=== PATIENT | male | born 1980 | race Hispanic/Latino ===

== ENCOUNTER 2020-01-24 12:45 | Observation (INO) | payer BC, SELFPAY ==
[2020-01-24] MEDS ORDERED: Aspirin Chewable 81 MG TAB ONE (13:14)
--- NOTE | 2020-01-24 13:30 | RAD ---
XR Chest 1 View Portable HISTORY: Chest pain COMPARISON: None FINDINGS: The heart size is normal. The lungs are well expanded without focal areas of consolidation, pneumothorax or pleural effusions. IMPRESSION: No radiographic evidence of acute cardiopulmonary process.
[2020-01-24 13:35] LABS: #Basophils 0.1 thou/uL (0.0-0.2); #Eosinphils 0.2 thou/uL (0.0-0.7); #Lymphocytes 2.9 thou/uL (1.20-3.40); #Neutrophils 5.5 thou/uL (1.40-6.50); %Basophils 0.6 % (0.0-1.0); %Eosinophils 2.2 % (0.0-10.0); %Lymphocytes 30.2 % (21.0-51.0); %Monocytes 9.9 % (0.0-10.0); %Neutrophils 57.1 % (42.0-75.0); Hemoglobin 15.8 g/dL (14.0-18.0); Mean Corpuscular HGB CONC 33.8 g/dL (32.0-36.0); Mean Corpuscular Hemoglobin 31.3 pg (27.0-31.0); Mean Corpuscular Volume 92.6 fL (78.0-98.0); Platelet Count 230 thou/uL (130-400); RBC Distribution Width 12.4 % (11.5-14.5); Red Blood Cell (RBC) Count 5.06 mill/uL (4.70-6.10); White Blood Cell (WBC) Count 9.6 thou/uL (4.8-10.8)
[2020-01-24 13:58] LABS: ALT (SGPT) 46 U/L (8-55); AST (SGOT) 20 U/L (5-34); Albumin 4.2 g/dL (3.5-5.0); Alkaline Phosphatase 76 U/L (40-110); Anion Gap 13 mmol/L (10-20); BUN (Urea Nitrogen) 13 mg/dL (8.9-20.6); Bilirubin, Total 0.3 mg/dL (0.2-1.2); Calc. Creatinine Clearance 0 mL/min (70-130); Carbon Dioxide 23 mmol/L (22-29); Chloride 104 mmol/L (98-107); Globulin 3.2 g/dL (2.4-3.5); Glucose 338 mg/dL (70-105); Lipase 105 U/L (8-78); Potassium 4.2 mmol/L (3.5-5.1); Protein, Total 7.4 g/dL (6.0-8.3); Sodium 136 mmol/L (136-145)
[2020-01-24] MEDS ORDERED: Enoxaparin Sodium 100 MG/ML SYRINGE ONE (15:00)
[2020-01-24] MEDS ORDERED: Senokot S 8.6-50 MG TAB PO PRN (16:27)
[2020-01-24] MEDS ORDERED: Acetaminophen 650 MG Suppository PR PRN (16:27)
[2020-01-24] MEDS ORDERED: Guaifenesin DM 100-10/5 ML UDCUP PO PRN (16:27)
[2020-01-24] MEDS ORDERED: HumaLOG 300 UNITS/3 ML VIAL SC PRN ×2 (16:27)
[2020-01-24] MEDS ORDERED: Ondansetron PF 4 MG/2 ML Vial IVP PRN (16:27)
[2020-01-24] MEDS ORDERED: Dextrose 50% Abboject 50 ML SYRINGE SLOW IVP PRN (16:27)
[2020-01-24] MEDS ORDERED: Dextrose 5% in Water 1,000 ML IV PRN (16:27)
[2020-01-24] MEDS ORDERED: Ondansetron ODT 4 MG TAB PO PRN (16:27)
[2020-01-24] MEDS ORDERED: Acetaminophen 325 MG TAB PO PRN (16:27)
[2020-01-24] MEDS ORDERED: HYDROcodone/Acetaminophen 5/325 mg Tablet PO PRN ×2 (16:27)
--- NOTE | 2020-01-24 16:54 | PDOC.EVN ---
Event Note - Event Note Event Note: Curbsided Dr. Cabrera. She stated that with normal EKG, negative troponin to do a stress test. If positive will need card consult and catheterization.
[2020-01-24] MEDS ORDERED: Carvedilol 3.125 MG TAB PO SCH (17:00)
--- NOTE | 2020-01-24 17:15 | HP ---
PRIMARY CARE PHYSICIAN: William Jackson MD CHIEF COMPLAINT: Chest pressure and shortness of breath. HISTORY OF PRESENT ILLNESS: This is a 39-year-old male, who has a known history of diabetes, hypertension, hyperlipidemia, and who was diagnosed with coronary artery disease in [place] in July of this year. 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 He was doing work in the [place] area, developed severe chest pressure with tingling and numbness of bilateral elbows. He went into the hospital there and they observed him overnight and then did a cardiac cath and found a 95% LAD stenosis. He had a single stent placed and was started on aspirin and Effient which he has been on since then. He was told he needed to take them for at least a year. The patient came back down to [place] to try and get some rest and relaxation and to see if this would help him some. He states that he may have been having a little chest pressure intermittently, but not regularly until about Tuesday, started getting central chest pressure, moving some to the left side of the chest, but mostly to the back. Chest pressure would come and go, was worse sometimes when he was doing activity, but denies any when he was lying still, did worry him a lot, so whenever he would get it, he would not be able to sleep at night. This chest pressure was associated with some shortness of breath and then today started getting some tingling around his right elbow just like before his last stent and so he came into the emergency room. In the ER, patient had a negative EKG, negative cardiac marker set. He was given aspirin and 1 mg/kg Lovenox and is being admitted for observation for possible unstable angina. Currently, he did not have any chest pressure, though when he started moving around a little bit and talking to me, this started to come back slightly. REVIEW OF SYSTEMS: CONSTITUTIONAL: No fevers, no chills. Patient did have diaphoresis with the chest pressure sometimes, especially right before he came in the hospital this time. EYES: No double vision or blurred vision that is new. He does have some chronic blurring of his vision from diabetes, which sounds like it is not well controlled. ENT: No congestion, drainage or sore throat. CARDIOVASCULAR: See HPI. No palpitations or racing heart. PULMONARY: See HPI. He had a little bit of a cough earlier in the week. This went away with some [id number] medication. No wheezing or chest tightness currently. GASTROINTESTINAL: No abdominal pain. No nausea or vomiting. No diarrhea or constipation. GENITOURINARY: No dysuria or hematuria. MUSCULOSKELETAL: No muscle aches or joint pains besides some chronic back pain with left-sided sciatica. SKIN: No rashes or lesions noted. NEUROLOGIC: See HPI. He also gets some tingling of his hands sometimes, which he attributes to his diabetes. PAST MEDICAL HISTORY: 1. Coronary artery disease with previous LAD stent. 2. Hypertension. 3. Hyperlipidemia. 4. Diabetes mellitus type 2. 5. Some sort of kidney issue as a child that he has not had since he was a teenager. PAST SURGICAL HISTORY: 1. Cholecystectomy. 2. Right shoulder surgery. 3. Stent to the LAD. SOCIAL HISTORY: The patient smokes cigarettes, it is usually a pack per day, when he is working it at a little more intermittent, and he will skip days at a time when he is not working. Has had trouble quitting in the past. He does report a previous history of cocaine use. The last time was in 2015. No current illicit drugs. Drinks socially about twice a month. The patient is . He reports he is a full code. Should he be incapacitated, his would be his medical decision maker, her name is Caryn Olivera. FAMILY HISTORY: Heart disease in his dad in his 70s, and mother and father both with diabetes, and both grandmothers with cancer. ALLERGIES: NO KNOWN DRUG ALLERGIES. CURRENT MEDICATIONS: 1. Lisinopril 10 mg daily. 2. Aspirin 81 mg daily. 3. Effient 10 mg daily. 4. Carvedilol 3.125 mg did twice a day. 5. Crestor, uncertain dose daily. 6. Metformin, uncertain dose twice a day. 7. Glipizide once a day. PHYSICAL EXAMINATION: VITAL SIGNS: Blood pressure 113/80, pulse 86, respirations 14, temperature 98.0, O2 saturation 99% on room air. GENERAL: This is a well-developed, obese, male, in no acute distress. HEENT: Pupils equal, round, and reactive to light. Oropharynx clear without lesions, erythema, or exudate. NECK: Supple. No lymphadenopathy. No thyroid nodules or enlargement. No JVD. HEART: Regular rate and rhythm. No murmurs, rubs, or gallops. LUNGS: Clear to auscultation bilaterally. No wheezes, crackles, or rhonchi. ABDOMEN: Soft, obese, nontender to palpation. Normoactive bowel sounds. No hepatosplenomegaly or other masses. EXTREMITIES: No clubbing, cyanosis, or edema. SKIN: No rashes or other lesions noted. NEUROLOGIC: The patient moves all extremities equally. No current loss of sensation. No facial droop. PSYCHIATRIC: Alert and oriented x3. Normal mood and affect. LABORATORY DATA: CBC within normal limits. Coagulation profile with a negative D-dimer. Complete metabolic panel is notable only for glucose of 338 and a lipase of 105. The rest was normal. Brain natriuretic peptide was negative and troponin was negative x1. Chest x-ray, I did review the chest x-ray done in the emergency room along with the radiologist report. It shows no acute cardiopulmonary disease. Normal chest x-ray. EKG, I did review the EKG done in the emergency room. It does show sinus tachycardia at 105 beats per minute without any ST-segment changes or T-wave changes. No evidence of ischemia. ASSESSMENT: 1. Chest pain, concern for unstable angina. The patient has a history of a stented LAD lesion in the last 6 months, concern for possible in-stent restenosis. We will continue Lovenox started in the emergency room as well as aspirin and the patient's Effient, and we will consult Cardiology, Dr. Cabrera and see if the patient needs another catheterization or a stress test. 2. Diabetes mellitus type 2. We will hold patient's metformin for now. We will resume his sulfonylurea and put him on a diabetic diet and fingerstick blood sugars q.a.c. and at bedtime and a low insulin sliding scale for now. 3. Hypertension. Resume the patient's home medications. 4. Hyperlipidemia. Resume the patient's home statin. 5. Gastrointestinal prophylaxis. The patient on Pepcid twice a day. 6. Deep venous thrombosis prophylaxis. Patient is already on Lovenox. CODE STATUS: The patient is a full code. Should he be incapacitated, his would be his medical decision maker. Job ID: [id number] [facility]
[2020-01-24 17:55] LABS: Troponin I 0.014 ng/mL (< 0.028)
[2020-01-24 18:40] VITALS: BMI 32.5
[2020-01-24 20:03] LABS: Troponin I Less than 0.010 ng/mL (< 0.028)
[2020-01-24] MEDS: Famotidine 20 MG TAB PO SCH (20:30)
[2020-01-24] MEDS: Enoxaparin Sodium 100 MG/ML SYRINGE SC SCH (20:30)
[2020-01-24] MEDS ORDERED: Rosuvastatin 20 MG TAB PO SCH (21:00)
[2020-01-24 23:04] LABS: SARS-CoV-2 MS2 Positive; SARS-CoV-2 N Gene Negative; SARS-CoV-2 S Gene Negative; SARS-CoV-2 by NAA Not Detected (NotDetected); SARS-CoV-2 orf1ab Negative
[2020-01-25 04:08] LABS: #Basophils 0.1 thou/uL (0.0-0.2); #Eosinphils 0.3 thou/uL (0.0-0.7); #Lymphocytes 4.1 thou/uL (1.20-3.40); #Neutrophils 5.6 thou/uL (1.40-6.50); %Basophils 1.2 % (0.0-1.0); %Eosinophils 2.4 % (0.0-10.0); %Lymphocytes 36.7 % (21.0-51.0); %Monocytes 9.2 % (0.0-10.0); %Neutrophils 50.5 % (42.0-75.0); Hemoglobin 14.6 g/dL (14.0-18.0); Mean Corpuscular HGB CONC 34.6 g/dL (32.0-36.0); Mean Corpuscular Hemoglobin 32.2 pg (27.0-31.0); Mean Corpuscular Volume 93.3 fL (78.0-98.0); Platelet Count 217 thou/uL (130-400); RBC Distribution Width 12.4 % (11.5-14.5); Red Blood Cell (RBC) Count 4.54 mill/uL (4.70-6.10)
[2020-01-25 04:29] LABS: Anion Gap 14 mmol/L (10-20); BUN (Urea Nitrogen) 13 mg/dL (8.9-20.6); Calc. Creatinine Clearance 180 mL/min (70-130); Calcium 8.9 mg/dL (7.8-10.44); Carbon Dioxide 21 mmol/L (22-29); Chloride 103 mmol/L (98-107); Glucose 270 mg/dL (70-105); Potassium 4.1 mmol/L (3.5-5.1); Sodium 134 mmol/L (136-145)
--- NOTE | 2020-01-25 07:41 | PDOC.HOSPP ---
- Subjective Encounter Date: 01/25/20 Encounter Time: 10:00 Subjective: Patient with minimal chest pressure on and off. Some tingling around his elbow on right. No other complaints. Going down for stress test right now. - Objective Vital Signs & Weight: Vital Signs (12 hours) Temp Pulse Resp BP Pulse Ox 01/25/20 07:24 97.8 F 85 16 119/85 95 01/25/20 03:46 97.8 F 92 18 116/87 98 01/25/20 00:00 89 Weight Weight 220 lb 9.6 oz I&O: 01/24/20 01/25/20 01/26/20 06:59 06:59 06:59 Intake Total 720 Balance 720 Result Diagrams: 01/25/20 03:35 01/25/20 03:35 Additional Labs: Accuchecks 01/25/20 01/24/20 06:22 20:10 POC Glucose 228 H 232 H Hospitalist ROS - Review of Systems Constitutional: denies: fever, chills Respiratory: denies: cough, shortness of breath Cardiovascular: denies: chest pain, palpitations Gastrointestinal: denies: nausea, vomiting, abdominal pain - Medication Medications: Active Medications Generic Name Dose Route Start Last Admin Trade Name Freq PRN Reason Stop Dose Admin Carvedilol 3.125 mg 01/24/20 17:00 01/24/20 20:30 Carvedilol 3.125 Mg Tab PO 3.125 mg BID-WM ANGIE Administration Enoxaparin Sodium 100 mg 01/24/20 21:00 01/24/20 20:30 Enoxaparin Sodium 100 Mg/Ml Syringe SC 100 mg 0900,2100 ANGIE Administration Famotidine 20 mg 01/24/20 21:00 01/24/20 20:30 Famotidine 20 Mg Tab PO 20 mg BID ANGIE Administration Rosuvastatin Calcium 20 mg 01/24/20 21:00 01/24/20 20:30 Rosuvastatin 20 Mg Tab PO 20 mg HS ANGIE Administration - Exam General Appearance: NAD, awake alert ENT: moist mucosa Heart: RRR, no murmur, no gallops, no rubs Respiratory: CTAB, no wheezes, no rales, no ronchi Gastrointestinal: soft, non-tender, non-distended, normal bowel sounds Psychiatric: normal affect, normal behavior, A&O x 3 Hosp A/P (1) Chest pain, rule out acute myocardial infarction Code(s): R07.9 - CHEST PAIN, UNSPECIFIED Status: Acute (2) CAD (coronary artery disease) Code(s): I25.10 - ATHSCL HEART DISEASE OF [place] CORONARY ARTERY W/O ANG PCTRS Status: Chronic Qualifiers: Coronary Disease-Associated Artery/Lesion type: [place] artery (3) HTN (hypertension) Code(s): I10 - ESSENTIAL (PRIMARY) HYPERTENSION Status: Chronic (4) HLD (hyperlipidemia) Code(s): E78.5 - HYPERLIPIDEMIA, UNSPECIFIED Status: Chronic (5) Diabetes mellitus type 2 in obese Code(s): E11.69 - TYPE 2 DIABETES MELLITUS WITH OTHER SPECIFIED COMPLICATION; E66.9 - OBESITY, UNSPECIFIED Status: Chronic - Plan stress test this morning, if negative can d/c with outpatient followup.
[2020-01-25] MEDS ORDERED: Carvedilol 6.25 MG TAB PO SCH (08:00)
[2020-01-25] MEDS ORDERED: Prasugrel 10 MG TAB PO SCH (09:00)
[2020-01-25] MEDS ORDERED: Aspirin 81 mg Enteric Coated Tablet PO SCH (09:00)
[2020-01-25] MEDS ORDERED: glipiZIDE 10 MG TAB PO SCH (09:00)
[2020-01-25] MEDS ORDERED: Lisinopril 5 MG TAB PO SCH (09:00)
[2020-01-25] MEDS ORDERED: Lisinopril 10 MG TAB PO SCH (09:00)
--- NOTE | 2020-01-25 13:50 | NM ---
Radionucleotide stress and rest myocardial perfusion scan with CT attenuation correction and SPECT im aging Left ventricular wall motion evaluation and ejection fraction HISTORY: Chest pain. Hypertension. FINDINGS: Adenosine protocol. There is homogeneous uptake of radiotracer throughout the left ventricu lar myocardium. No focal perfusion defect or reversibility. QGS analysis of gated SPECT images shows global hypokinesis. Ejection fraction calculated at 42%. IMPRESSION : No evidence of ischemia. Depressed LVEF 42%.
[2020-01-25] MEDS ORDERED: ADENOSINE 60 MG/20 ML VIAL ONE (14:09)
[2020-01-25] MEDS: Famotidine 20 MG TAB PO SCH (14:11)
[2020-01-25] MEDS: Enoxaparin Sodium 100 MG/ML SYRINGE SC SCH (14:12)
[2020-01-25 14:35] VITALS: BP 121/98; TEMP 97.9
[2020-01-25] MEDS ORDERED: Rosuvastatin 20 MG TAB PO SCH (21:00)
[2020-01-25] MEDS ORDERED: FLU VACC QS2020-21(6MOS UP)/PF 60 MCG/0.5 ML SYRINGE IM ONE (21:00)
--- NOTE | 2020-01-25 23:53 | DIS ---
DATE OF ADMISSION: 01/24/2020 DATE OF DISCHARGE: 01/25/2020 PRIMARY CARE PHYSICIAN: William Jackson MD. REASON FOR ADMISSION: Chest pressure. DIAGNOSES AT DISCHARGE: 1. Chest pressure, resolved. 2. Coronary artery disease. 3. Hypertension. 4. Hyperlipidemia. 5. Diabetes mellitus type 2. PROCEDURE: Nuclear medicine stress testing showing normal stress test. No evidence for significant coronary blockage. CONSULTATIONS: None. SUMMARY OF HOSPITAL COURSE: This is a 39-year-old male with a known history of diabetes, hypertension, hyperlipidemia, and who was diagnosed with severe LAD stenosis in July of this year. He had a stent placed. He has been on Effient and aspirin since then, which he has been taking religiously. He developed some chest pressure recently and then over the weekend started to get more frequent chest pressure episodes, also associated with some tingling around his right elbow, which he remembers having when he had his previous stent placed. He eventually came into the emergency room. He had negative EKG, negative cardiac markers, was given aspirin and Lovenox and admitted for observation. The patient had negative cardiac markers overnight. He had noted no abnormalities on his telemetry monitoring. He had a nuclear medicine stress test that was negative for evidence for significant coronary artery disease. The patient was doing well the day of discharge and is being discharged home to follow up with Cardiology as an outpatient. DISCHARGE MANAGEMENT: Discharged home. ACTIVITY: As tolerated. DIET: Diabetic diet. FOLLOWUP: Follow up with Dr. Jackson in [address] Cabrera in 3 to 4 weeks. He is to call our office for an appointment. DISCHARGE MEDICATIONS: 1. Aspirin 81 mg daily. 2. Carvedilol 6.25 mg twice daily. 3. Glipizide 10 mg twice daily. 4. Lisinopril 5 mg daily. 5. Effient 10 mg daily. 6. Crestor 40 mg at night. 7. Metformin 1000 mg twice daily. Job ID: [id number]
--- NOTE | 2020-02-02 17:53 | EKG ---
Test Reason : Blood Pressure : / mmHG Vent. Rate : 101 BPM Atrial Rate : 101 BPM P-R Int : 148 ms QRS Dur : 082 ms QT Int : 334 ms P-R-T Axes : 051 037 042 degrees QTc Int : 433 ms Sinus tachycardia Otherwise normal ECG Confirmed by ROMULO VAUGHAN, ROSENDA ([id number]), graphic editor GASPER MILLS ([id number]) on 02/02/2020 5:52:42 PM Referred By: Confirmed By:ROSENDA SEBASTIAN MD
--- NOTE | 2020-02-06 09:31 | STRESS ---
Acquisition Time: 2020-01-25 12:00:37 Total Exercise Time: 00:04:00 Test Indications: CHEST PAIN Medications: Protocol: ADENOSINE Max HR: 117 BPM 65% of Pred: 180 BPM Max BP: 136/098 mmHG Max Work Load: 1.0 METS RESTING ECG: NORMAL SINUS RHYTHM AT 87 BPM SYMPTOMS: NONE NORMAL BLOOD PRESSURE RESPONSE ECTOPY: NONE ECG RESPONSE: NO SIGNIFICANT CHANGES INTERPRETATION: NEGATIVE ECG/AWAIT NUCLEAR IMAGES FOR DEFINITIVE DIAGNOSIS Confirmed by DESHAWN MATHUR MD ([id number]) on 02/06/2020 9:31:37 AM Referred By: MD Antonio VERDUGO Confirmed By:DESHAWN MATHUR MD
== END 2020-01-25 15:41 | disposition home or self-care (01) ==
LOC: ERS 12:45 → ERHOLD 14:58 → 2NO 18:21
PROVIDERS: ADMIT Student in an Organized Health Care Education/Training Program; ATTEND Student in an Organized Health Care Education/Training Program
DX: R07.89 Other chest pain (principal); R06.02 Shortness of breath; I25.10 Atherosclerotic heart disease of native coronary artery without angina pectoris; I10 Essential (primary) hypertension; E11.9 Type 2 diabetes mellitus without complications; E78.5 Hyperlipidemia, unspecified; F17.210 Nicotine dependence, cigarettes, uncomplicated; E66.9 Obesity, unspecified; Z68.32 Body mass index [BMI] 32.0-32.9, adult; Z79.82 Long term (current) use of aspirin; Z79.84 Long term (current) use of oral hypoglycemic drugs; Z79.899 Other long term (current) drug therapy; Z95.5 Presence of coronary angioplasty implant and graft; Z20.828 Contact with and (suspected) exposure to other viral communicable diseases
CPT/HCPCS: 36415; 36416; 71045; 78452; 80048; 80053; 83690; 83880; 84484; 85025; 85379; 87635; 93005; 93017; 93306; 96372; A9500; G0378; J0153; J1650; U0003

== ENCOUNTER 2020-05-12 06:37 | Emergency (ER) | payer BC, SELFPAY ==
[2020-05-12] MEDS ORDERED: Ketorolac Tromethamine 30 MG/ML VIAL ONE (07:13)
== END 2020-05-12 07:25 | disposition home or self-care (01) ==
LOC: ERS 06:37
DX: M25.552 Pain in left hip (principal); E11.9 Type 2 diabetes mellitus without complications; I10 Essential (primary) hypertension; Z79.82 Long term (current) use of aspirin; Z79.84 Long term (current) use of oral hypoglycemic drugs; Z79.899 Other long term (current) drug therapy
CPT/HCPCS: 96372; 99283; J1885

== ENCOUNTER 2020-06-28 07:15 | Emergency (ER) | payer BC, SELFPAY ==
[2020-06-28] MEDS ORDERED: Lidocaine 1% w/Epinephrine 1:100K 20 ML VIAL ONE (07:35)
[2020-06-28 07:53] LABS: #Basophils 0.1 thou/uL (0.0-0.2); #Eosinphils 0.4 thou/uL (0.0-0.7); #Monocytes 1.2 thou/uL (0.11-0.59); #Neutrophils 7.3 thou/uL (1.40-6.50); %Basophils 0.5 % (0.0-1.0); %Eosinophils 3.3 % (0.0-10.0); %Lymphocytes 25.2 % (21.0-51.0); %Neutrophils 60.9 % (42.0-75.0); Hemoglobin 14.1 g/dL (14.0-18.0); Mean Corpuscular HGB CONC 34.8 g/dL (32.0-36.0); Mean Corpuscular Hemoglobin 31.7 pg (27.0-31.0); Mean Platelet Volume 7.8 fL (7.4-10.4); Platelet Count 275 thou/uL (130-400); Red Blood Cell (RBC) Count 4.44 mill/uL (4.70-6.10); White Blood Cell (WBC) Count 11.9 thou/uL (4.8-10.8)
[2020-06-28] MEDS ORDERED: Bacitracin 1 PK ONE (07:56)
[2020-06-28 08:14] LABS: ALT (SGPT) 18 U/L (8-55); AST (SGOT) 13 U/L (5-34); Albumin 4.1 g/dL (3.5-5.0); Alkaline Phosphatase 111 U/L (40-110); Anion Gap 13 mmol/L (10-20); BUN (Urea Nitrogen) 14 mg/dL (8.9-20.6); Bilirubin, Total 0.3 mg/dL (0.2-1.2); Calc. Creatinine Clearance 0 mL/min (70-130); Calcium 9.2 mg/dL (7.8-10.44); Carbon Dioxide 25 mmol/L (22-29); Chloride 100 mmol/L (98-107); Globulin 3.4 g/dL (2.4-3.5); Glucose 420 mg/dL (70-105); Potassium 4.4 mmol/L (3.5-5.1); Protein, Total 7.5 g/dL (6.0-8.3); Sodium 134 mmol/L (136-145)
== END 2020-06-28 09:03 | disposition home or self-care (01) ==
LOC: ERS 07:15
DX: L02.211 Cutaneous abscess of abdominal wall (principal); E11.9 Type 2 diabetes mellitus without complications; I10 Essential (primary) hypertension; F17.210 Nicotine dependence, cigarettes, uncomplicated; Z79.84 Long term (current) use of oral hypoglycemic drugs; Z79.82 Long term (current) use of aspirin; Z79.899 Other long term (current) drug therapy
CPT/HCPCS: 10060; 36416; 80053; 83605; 85025; 94760

== ENCOUNTER 2020-06-30 07:59 | Emergency (ER) | payer SELFPAY | END 2020-06-30 09:19 | disposition home or self-care (01) | LOC: ERS 07:59 | DX: Z48.817 Encounter for surgical aftercare following surgery on the skin and subcutaneous tissue (principal); E11.9 Type 2 diabetes mellitus without complications; I10 Essential (primary) hypertension; F17.210 Nicotine dependence, cigarettes, uncomplicated; Z79.84 Long term (current) use of oral hypoglycemic drugs; Z79.82 Long term (current) use of aspirin; Z79.899 Other long term (current) drug therapy | CPT/HCPCS: 99282 ==

== ENCOUNTER 2022-01-22 08:10 | Emergency (ER) | payer BC ==
[2022-01-22] MEDS ORDERED: Fluorescein Opthalmic Strip ONE (08:37)
[2022-01-22] MEDS ORDERED: Proparacaine 0.5% Opth 15 ML BOT ONE (08:37)
== END 2022-01-22 09:16 | disposition home or self-care (01) ==
LOC: ERS 08:10
DX: H10.89 Other conjunctivitis (principal); E11.9 Type 2 diabetes mellitus without complications; I10 Essential (primary) hypertension; E78.00 Pure hypercholesterolemia, unspecified; F17.210 Nicotine dependence, cigarettes, uncomplicated; Z79.84 Long term (current) use of oral hypoglycemic drugs; Z79.899 Other long term (current) drug therapy
CPT/HCPCS: 99283

== ENCOUNTER 2023-03-23 14:22 | Emergency (ER) | payer OTHER, BC ==
[2023-03-23 14:56] LABS: #Eosinphils 0.3 thou/uL (0.0-0.7); #Monocytes 0.6 thou/uL (0.11-0.59); #Neutrophils 4.4 thou/uL (1.40-6.50); %Basophils 0.4 % (0.0-1.0); %Eosinophils 3.2 % (0.0-10.0); %Lymphocytes 32.7 % (21.0-51.0); %Monocytes 7.3 % (0.0-10.0); %Neutrophils 55.9 % (42.0-75.0); Hematocrit 42.6 % (42.0-52.0); Hemoglobin 14.1 g/dL (14.0-18.0); Mean Corpuscular HGB CONC 33.1 g/dL (32.0-36.0); Mean Corpuscular Hemoglobin 30.5 pg (27.0-31.0); Mean Corpuscular Volume 92.2 fl (78.0-98.0); Mean Platelet Volume 9.9 fL (7.4-10.4); Platelet Count 233 10x3/uL (130-400); RBC Distribution Width 12.6 % (11.5-14.5); Red Blood Cell (RBC) Count 4.62 mill/uL (4.70-6.10); White Blood Cell (WBC) Count 7.9 10x3/uL (4.8-10.8)
[2023-03-23 15:18] LABS: ALT (SGPT) 19 U/L (8-55); AST (SGOT) 17 U/L (5-34); Albumin 3.8 g/dL (3.5-5.0); Alkaline Phosphatase 78 U/L (40-110); Anion Gap 16 mmol/L (10-20); BUN (Urea Nitrogen) 10 mg/dL (8.9-20.6); Bilirubin, Total 0.5 mg/dL (0.2-1.2); Calc. Creatinine Clearance 0 mL/min (70-130); Calcium 8.9 mg/dL (7.8-10.44); Carbon Dioxide 20 mmol/L (22-29); Chloride 106 mmol/L (98-107); Estimated GFR 111; Glucose 310 mg/dL (70-105); Potassium 4.6 mmol/L (3.5-5.1); Protein, Total 6.8 g/dL (6.0-8.3); Sodium 137 mmol/L (136-145)
[2023-03-23 15:22] LABS: Troponin I 0.011 ng/mL (< 0.028)
== END 2023-03-23 15:32 | disposition home or self-care (01) ==
LOC: ERS 14:22
DX: R05.1 Acute cough (principal); E11.9 Type 2 diabetes mellitus without complications; I10 Essential (primary) hypertension; E78.00 Pure hypercholesterolemia, unspecified; F17.210 Nicotine dependence, cigarettes, uncomplicated; Z79.84 Long term (current) use of oral hypoglycemic drugs; Z79.82 Long term (current) use of aspirin; Z79.899 Other long term (current) drug therapy
CPT/HCPCS: 36415; 71045; 80053; 84484; 85025; 93005